=== PATIENT | female | born 1990 | race Caucasian/White ===

== ENCOUNTER 2022-07-07 16:03 | Inpatient (IN) | payer SELFPAY ==
[~2022-07-07] VITALS: Ht 160 cm; Wt 80.7 kg
--- NOTE | 2022-07-07 16:35 | NUR ---
C/O NAUSEA/ VOMITING DIARRHEA SINCE YESTERDAY. "VOMIT & DIARRHEA 10X" ABDOMINAL CRAMPING PAIN 02/08
--- NOTE | 2022-07-07 16:40 | NUR ---
pt seen by dr babb at bedside for eval
[2022-07-07] MEDS ORDERED: KETOROLAC TROMETHAMINE INJ 30 MG/ML VIAL IV ONE (17:00)
[2022-07-07] MEDS ORDERED: IV NS 0.9% 1,000 ML IV ONE ×2 (17:00→19:00)
[2022-07-07] MEDS ORDERED: ONDANSETRON HCL/PF 4 MG/2 ML VIAL IV ONE (17:00)
[2022-07-07] MEDS ORDERED: ONDANSETRON HCL/PF 4 MG/2 ML VIAL ONE ×2 (17:20→19:52)
--- NOTE | 2022-07-07 17:20 | NUR ---
established iv line 18g left upper arm
--- NOTE | 2022-07-07 17:30 | NUR ---
blood sample obtained sent to lab
[2022-07-07] MEDS ORDERED: MORPHINE SULFATE INJ 4 MG/ML DISP.SYRIN ONE (17:43)
[2022-07-07] MEDS ORDERED: diphenhydrAMINE HCL 50 MG/ML VIAL ONE (17:43)
[2022-07-07] MEDS ORDERED: METOCLOPRAMIDE HCL 10 MG/2 ML VIAL ONE (17:43)
[2022-07-07] MEDS ORDERED: diphenhydrAMINE HCL 50 MG/ML VIAL IV ONE (18:00)
[2022-07-07] MEDS ORDERED: METOCLOPRAMIDE HCL 10 MG/2 ML VIAL IV ONE (18:00)
[2022-07-07] MEDS ORDERED: MORPHINE SULFATE INJ 2 MG/ML DISP.SYRIN IV ONE (18:00)
[2022-07-07 18:07] LABS: BASOPHILS % (AUTO) 0.1 % (0.0-2.0); HEMATOCRIT 45 % (33-45); HEMOGLOBIN 14.2 g/dL (11.5-14.8); LYMPHOCYTES # (AUTO) 0.8 K/uL (0.8-4.8); MEAN CORPUSCULAR HGB CONC 32 g/dl (31.0-36.0); MEAN CORPUSCULAR VOLUME 84 fL (82-100); MONOCYTES # (AUTO) 0.9 K/uL (0.1-1.30); MONOCYTES % (AUTO) 8.8 % (2.0-12.0); NEUTROPHILS # (AUTO) 8.8 K/uL (1.8-8.9); NEUTROPHILS % (AUTO) 83.1 % (43.0-81.0); PLATELET COUNT (AUTO) 451 K/uL (150-450); RED BLOOD CELL COUNT(AUTO) 5.35 MIL/uL (4.0-5.2); WHITE BLOOD COUNT (AUTO) 10.6 K/uL (4.3-11.0)
[2022-07-07 18:34] LABS: CALCIUM, SERUM 10.3 mg/dL (8.5-10.1); CREATININE 1.1 mg/dL (0.6-1.3); POTASSIUM 3.2 mmol/L (3.5-5.1)
--- NOTE | 2022-07-07 19:26 | NUR ---
URINE SAMPLE COLLECTED AND SENT TO LAB
[2022-07-07] MEDS ORDERED: POTASSIUM CHLORIDE 20 MEQ TAB.PRT.SR PO ONE ×2 (19:30→19:35)
[2022-07-07 19:53] LABS: BILIRUBIN,URINE 2+ (NEGATIVE); COLOR,URINE YELLOW (YELLOW); LEUKOCYTE ESTERASE ,URINE 2+ (NEGATIVE); NITRITE, URINE NEGATIVE (NEGATIVE); PROTEIN,URINE 1+ mg/dl (NEGATIVE); UGLUCOSE NEGATIVE (NEGATIVE); UROBILINOGEN,URINE 0.2 EU/dL (0.2)
[2022-07-07] MEDS ORDERED: ONDANSETRON HCL/PF - ER 4 MG/2 ML VIAL IV ONE (20:00)
[2022-07-07 20:08] LABS: BACTERIA,URINE 2+ /HPF (None Seen); WBC,URINE 21-50 /HPF (0-3)
[2022-07-07 20:09] LABS: MUCUS,URINE Moderate /LPF (None Seen)
[2022-07-07] MEDS ORDERED: CEFTRIAXONE 1GM BAG (ER ONLY) 1 GM/50 ML PIGGYBACK IV ONE (20:30)
[2022-07-07] MEDS ORDERED: CEFTRIAXONE 1GM BAG (ER ONLY) 50 ML IV ONE (20:35)
[2022-07-07] MEDS ORDERED: HALOPERIDOL LACTATE INJ 5 MG/ML VIAL ONE (21:20)
[2022-07-07] MEDS ORDERED: HALOPERIDOL LACTATE INJ 5 MG/ML VIAL IV ONE (21:30)
--- NOTE | 2022-07-07 21:41 | NUR ---
COVID SWAB COLLECTED
--- NOTE | 2022-07-07 23:16 | NUR ---
REPORT GIVEN TO ALICIA ISABEL
[2022-07-08] VITALS: BP 130/90
[2022-07-08] MEDS ORDERED: MAGNESIUM HYDROXIDE 30 ML UDC PO PRN
[2022-07-08] MEDS ORDERED: Z GUARD REMEDY 4 OZ OINT TP PRN
[2022-07-08] MEDS ORDERED: HYDROCODONE/APAP 5/325MG TABLET PO PRN
[2022-07-08] MEDS ORDERED: ACETAMINOPHEN 325 MG TABLET PO PRN
[2022-07-08] MEDS ORDERED: MAG HYDROX/AL HYDROX/SIMETH 30 ML UDC PO PRN
[2022-07-08] MEDS ORDERED: ZOLPIDEM TARTRATE 5 MG TABLET PO PRN
--- NOTE | 2022-07-08 00:12 | NUR ---
PATIENT TRANSFERRED VSS.
[2022-07-08] MEDS: MORPHINE SULFATE INJ 2 MG/ML DISP.SYRIN IV PRN ×5 (00:23→22:22)
[2022-07-08] MEDS: IV NS 0.9% 1,000 ML IV PRN ×3 (00:23→22:22)
--- NOTE | 2022-07-08 00:31 | NUR ---
RN NOTE PRN MORPHINE 4MG GIVEN FOR 10/10 PAIN TOLERATED WELL.
--- NOTE | 2022-07-08 01:04 | NUR ---
RN NOTE PT A/OX4 ABLE TO MAKE NEEDS KNOWN ON ROOM AIR TOLERATING WELL. WITH IV ACCESS ON THE TEJINDER #18G FLUSHING WELL CONNECTED TO NS@100ML/HR. PT WAS REPORTING 10/10 ABDOMINAL PAIN PRN MORPHINE WAS GIVEN TOLERATED WELL PT NOT REPORTING N/V AT THIS TIME.PT ASLEEP AT THIS TIME. EASILY WOKEN UP. PT ORIENTED TO UNIT AND ROOM. CALL LIGHT WITHIN REACH. TABLE WITHIN REACH. ALL NEEDS MET AT THIS TIME.
[2022-07-08] MEDS: ONDANSETRON HCL/PF 4 MG/2 ML VIAL IVP PRN ×4 (04:55→23:59)
--- NOTE | 2022-07-08 04:59 | NUR ---
RN NOTE PRN MORPHINE AND ZOFRAN GIVEN FOR NAUSEA AND PAIN MANAGEMENT TOLERATED WELL.
[2022-07-08 05:53] LABS: BASOPHILS % (AUTO) 0.3 % (0.0-2.0); EOSINOPHILS % (AUTO) 0.2 % (0.0-6.0); HEMATOCRIT 37 % (33-45); HEMOGLOBIN 11.8 g/dL (11.5-14.8); LYMPHOCYTES # (AUTO) 1.2 K/uL (0.8-4.8); LYMPHOCYTES % (AUTO) 12.9 % (20.0-44.0); MEAN CORPUSCULAR HGB CONC 32 g/dl (31.0-36.0); MEAN CORPUSCULAR VOLUME 84 fL (82-100); MONOCYTES # (AUTO) 0.9 K/uL (0.1-1.30); MONOCYTES % (AUTO) 9.4 % (2.0-12.0); NEUTROPHILS # (AUTO) 7.2 K/uL (1.8-8.9); NEUTROPHILS % (AUTO) 77.2 % (43.0-81.0); PLATELET COUNT (AUTO) 283 K/uL (150-450); RED BLOOD CELL COUNT(AUTO) 4.34 MIL/uL (4.0-5.2); WHITE BLOOD COUNT (AUTO) 9.3 K/uL (4.3-11.0)
[2022-07-08 06:12] LABS: CALCIUM, SERUM 8.2 mg/dL (8.5-10.1); CREATININE 0.8 mg/dL (0.6-1.3); MAGNESIUM 1.9 mg/dL (1.8-2.4); PHOSPHORUS 3.5 mg/dL (2.5-4.9); POTASSIUM 3.5 mmol/L (3.5-5.1)
--- NOTE | 2022-07-08 06:56 | NUR ---
RN NOTE PT IN BED ASLEEP EASILY WOKEN UP. ALL NEEDS MET. CALL LIGHT WITHIN REACH. PAIN MANAGEMENT PROVIDED NEEDED. NO EMESIS DURING THE SHIFT.WILL ENDORSE CARE TO DAY SHIFT NURSE.
--- NOTE | 2022-07-08 07:30 | NUR ---
RN MS NOTES PT IN BED, AWAKE, ALERT AND ORIENTED, WITH COMPLAINT OF ABDOMINAL, CALL LIGHT WITHIN REACH, IV FLUIDS INFUSING WELL, NEEDS ATTENDED.
[2022-07-08 08:00] VITALS: BP 116/68
[2022-07-08] MEDS: PANTOPRAZOLE 40 MG TABLET.DR PO SCH (08:02)
[2022-07-08] MEDS ORDERED: [UNRECOGNIZED DRUG - CODE] PO (08:24)
[2022-07-08] MEDS ORDERED: CLON1TAB12 PO (08:24)
[2022-07-08] MEDS ORDERED: NADO20TA3 PO (08:24)
[2022-07-08] MEDS ORDERED: ONDA4TAB11 PO (08:24)
[2022-07-08] MEDS ORDERED: IVAB7.5T PO (08:24)
[2022-07-08] MEDS ORDERED: FAMO20TA8 PO (08:24)
[2022-07-08] MEDS ORDERED: DULO20CA19 PO (08:24)
[2022-07-08] MEDS ORDERED: PANT40TA49 PO (08:24)
[2022-07-08] MEDS ORDERED: CEFTRIAXONE 1 G in IV D5W 50 ML IV SCH (09:00)
[2022-07-08 16:00] VITALS: BP 116/79
[2022-07-08] MEDS: METRONIDAZOLE 500MG/ NS 100ML 500 MG in PREMIX 1 EA IV SCH ×2 (17:28→23:56)
--- NOTE | 2022-07-08 18:33 | NUR ---
RN MS NOTES PT IN BED, AWAKE, ALERT AND ORIENTED, PAIN MEDICATION AND NAUSEA MEDS GIVEN ORDERED, IV FLUIDS INFUSING WELL, ABLE TO AMBULATE TO THE BATHROOM WITH STEADY GAIT, SEEN BY DR. ESTEVES TODAY, CALL LIGHT WITHIN REACH, DUE MEDS GIVEN ORDERED.
--- NOTE | 2022-07-08 19:30 | NUR ---
MS RN OPENING NOTES - RECEIVED PATIENT AWAKE, BED IN LOW SEMI-LOMBARDO'S. A/O X4. BREATHING EVEN AND NON-LABORED ON ROOM AIR. C/O MILD MID-ABDOMINAL PAIN WITH NAUSEA. HAS LEFT UPPER ARM IV ACCESS #18G WITH NS RUNNING AT 100 ML/HR. NO S/S OF INFILTRATION NOTED. SAFETY PRECAUTIONS IN PLACE: BED LOCKED AND IN LOW POSITION, SIDE RAILS UP X2, CALL LIGHT WITHIN REACH. WILL CONTINUE PLAN OF CARE.
[2022-07-08 20:00] VITALS: BP 141/68
[2022-07-08] MEDS: CEFTRIAXONE 1 G in IV D5W 50 ML IV SCH (20:27)
[2022-07-08] MEDS: LORAZEPAM INJ 2 MG/ML VIAL IV PRN (20:31)
--- NOTE | 2022-07-08 20:41 | NUR ---
PER ON-CALL HOSPITALIST CHELSEY REN NP, HOSPITALIST WINSTON ESTEVES NP CAN DO THE MED RECON TOMORROW. CN SOFI AWARE.
[2022-07-09] MEDS: MORPHINE SULFATE INJ 2 MG/ML DISP.SYRIN IV PRN ×5 (02:22→22:46)
--- NOTE | 2022-07-09 04:59 | NUR ---
N/V MANAGED BY GIVING PRN MORPHINE SULFATE 4MG AND ZOFRAN 4MG PER MD ORDER. CLEAR EMESIS NOTED.
[2022-07-09] MEDS: ONDANSETRON HCL/PF 4 MG/2 ML VIAL IVP PRN ×3 (06:16→17:52)
[2022-07-09] MEDS: METRONIDAZOLE 500MG/ NS 100ML 500 MG in PREMIX 1 EA IV SCH ×4 (06:17→23:59)
--- NOTE | 2022-07-09 07:30 | NUR ---
MS RN OPENING NOTES - RECEIVED PATIENT AWAKE AND VERBALLY RESPONSIVE , BED IN LOW SEMI-LOMBARDO'S. A/O X4. ROOM AIR WITH NO SOB OR DISTRESS NOTED . NO C/O OF PAIN AND DISCOMFORT , NAUSEA NOTED , HAS LEFT UPPER ARM IV ACCESS #18G WITH NS RUNNING AT 100 ML/HR. NO S/S OF INFILTRATION NOTED. SAFETY PRECAUTIONS IN PLACE: BED LOCKED AND IN LOW POSITION, SIDE RAILS UP X2, CALL LIGHT WITHIN REACH. WILL CONTINUE PLAN OF CARE.
--- NOTE | 2022-07-09 07:30 | NUR ---
MS RN CLOSING NOTES - PATIENT IN BED ASLEEP, EASY TO AROUSE. ABLE TO VERBALIZE NEEDS. AMBULATORY WITH STEADY GAIT. NO ACUTE EVENTS THROUGHOUT THE NIGHT. AFEBRILE. N/V AND ABDOMINAL PAIN STILL PRESENT, ON CLEAR LIQUIDS. LEFT UPPER ARM IV ACCESS #18G INTACT, PATENT AND FLUSHING. ALL DUE MEDS GIVEN AND NEEDS ATTENDED. SAFETY PRECAUTIONS MAINTAINED. WILL ENDORSE TO NEXT SHIFT FOR CONTINUITY OF CARE.
[2022-07-09] MEDS: PANTOPRAZOLE 40 MG TABLET.DR PO SCH (07:56)
[2022-07-09] MEDS: CEFTRIAXONE 1 G in IV D5W 50 ML IV SCH (09:01)
[2022-07-09 09:45] LABS: BASOPHILS % (AUTO) 0.3 % (0.0-2.0); EOSINOPHILS % (AUTO) 0.2 % (0.0-6.0); HEMATOCRIT 41 % (33-45); HEMOGLOBIN 12.9 g/dL (11.5-14.8); LYMPHOCYTES # (AUTO) 0.9 K/uL (0.8-4.8); LYMPHOCYTES % (AUTO) 15.5 % (20.0-44.0); MEAN CORPUSCULAR HGB CONC 32 g/dl (31.0-36.0); MEAN CORPUSCULAR VOLUME 83 fL (82-100); MONOCYTES # (AUTO) 0.3 K/uL (0.1-1.30); MONOCYTES % (AUTO) 5.8 % (2.0-12.0); NEUTROPHILS # (AUTO) 4.3 K/uL (1.8-8.9); NEUTROPHILS % (AUTO) 78.2 % (43.0-81.0); PLATELET COUNT (AUTO) 262 K/uL (150-450); RED BLOOD CELL COUNT(AUTO) 4.88 MIL/uL (4.0-5.2); WHITE BLOOD COUNT (AUTO) 5.5 K/uL (4.3-11.0)
[2022-07-09 09:59] LABS: CALCIUM, SERUM 8.8 mg/dL (8.5-10.1); CREATININE 0.8 mg/dL (0.6-1.3); POTASSIUM 3.3 mmol/L (3.5-5.1)
[2022-07-09 10:13] LABS: ALBUMIN 3.8 g/dL (3.4-5.0); BILIRUBIN,DIRECT 0.2 mg/dL (0.0-0.2); BILIRUBIN,TOTAL 0.7 mg/dL (0.2-1.0); MAGNESIUM 1.9 mg/dL (1.8-2.4); PHOSPHORUS 2.8 mg/dL (2.5-4.9); TOTAL PROTEIN, SERUM 6.8 g/dL (6.4-8.2)
--- NOTE | 2022-07-09 10:15 | NUR ---
RN NOTES PATIENT C/O OF NAUSEA AND VOMITTING AND WITH ORDER OF ZOFRAN Q 6 HOURS , PULP MAKING PLANT OPERATOR SHAR ESTEVES AWARE AND WITH ORDER TO GIVE ZOFRAN IV , GIVEN AT 1011
--- NOTE | 2022-07-09 10:54 | NUR ---
RN NOTES ASSESSED FOR NAUSEA AND VOMITTING AND SHE SAID VETO IS NOT HELPING AT ALL , ENGRAVING PLATE MAKER SHAR ESTEVES WITH ORDER OF COMPAZINE IV AND GIVEN ORDERED
[2022-07-09] MEDS: IV NS 0.9% 1,000 ML IV PRN ×2 (11:07→23:59)
[2022-07-09] MEDS: LORAZEPAM INJ 2 MG/ML VIAL IV PRN (11:20)
--- NOTE | 2022-07-09 13:55 | NUR ---
NOTES: PT REQUESTED COMPAZINE, STATES SHE IS FEELING NAUSEATED, COVERING MAIN RN; WILL ADMINISTER ORDERED.
[2022-07-09] MEDS: PROCHLORPERAZINE EDISYLATE 10 MG/2 ML VIAL IM PRN ×2 (14:05→20:29)
[2022-07-09] MEDS ORDERED: IVABRADINE HCL 7.5 MG PO SCH (17:00)
[2022-07-09] MEDS: clonazePAM 1 MG TABLET PO SCH (17:14)
[2022-07-09] MEDS ORDERED: POTASSIUM CL. PREMIX PERIPHER. 50 ML IV SCH (18:30)
--- NOTE | 2022-07-09 18:36 | NUR ---
MS RN CLOSING NOTES - PATIENT AWAKE AND VERBALLY RESPONSIVE , BED IN LOW SEMI-LOMBARDO'S. A/O X4. ROOM AIR WITH NO SOB OR DISTRESS NOTED . C/O OF PAIN AND DISCOMFORT AND MORPHINE IV GIVEN ORDERED AND WITH HELP , NAUSEA AND VOMITTING NOTED ZOFRAN GIVEN AND SEEN BY INTERNET SALES ASSOCIATE WINSTON ESTEVES AND WITH ORDER OF COMPAZINE IM ORDERED GIVEN X 1 , MEDS WERE RECONCILED AND ORDERED , NOTED WITH K LEVEL OF 3.3 AND POTASSIUM IV GIVEN ORDERED , ALL DUE MEDS ORDERED GIVEN , HAS LEFT UPPER ARM IV ACCESS #18G WITH NS RUNNING AT 100 ML/HR. NO S/S OF INFILTRATION NOTED. SAFETY PRECAUTIONS IN PLACE: BED LOCKED AND IN LOW POSITION, SIDE RAILS UP X2, CALL LIGHT WITHIN REACH. WILL ENDORSED TO NEXT SHIFT .
--- NOTE | 2022-07-09 20:08 | NUR ---
RN OPENING NOTES RECEIVED PT IN BED, EYES CLOSED, LAYING ON LEFT SIDE. AOx4, ABLE TO MAKE NEEDS KNOWN. ON RA AND TOLERATING WELL. NO SOB NOTED. NO S/SX OF RESPIRATORY DISTRESS NOTED. IV ACCESS IN TEJINDER #18G RUNNING NS @ 100 ML/HR. SAFETY PRECAUTIONS IN PLACE: BED IN LOWEST, LOCKED POSITION, SIDERAILS UPx2, AND BRAKES ON. TABLE AND CALL LIGHT WITHIN REACH. ALL NEEDS MET AT THIS TIME.
[2022-07-09 20:35] VITALS: BP 137/94
[2022-07-09] MEDS: METOPROLOL TARTRATE 25 MG TABLET PO SCH (20:41)
[2022-07-09] MEDS: METOCLOPRAMIDE HCL 10 MG/2 ML VIAL IV SCH (22:35)
--- NOTE | 2022-07-09 22:46 | NUR ---
RN NOTES ADMINISTERED MORPHINE FOR PAIN PER MD ORDER.VS WNL.
[2022-07-10] MEDS: MORPHINE SULFATE INJ 2 MG/ML DISP.SYRIN IV PRN ×2 (02:42→08:30)
[2022-07-10] MEDS: ONDANSETRON HCL/PF 4 MG/2 ML VIAL IVP PRN ×2 (02:42→08:46)
--- NOTE | 2022-07-10 02:43 | NUR ---
RN NOTES ADMINISTERED ZOFRAN FOR NAUSEA AND VOMITING. ADMINISTERED MORPHINE FOR PAIN PER MD ORDER. VS WNL.
[2022-07-10] MEDS: METOCLOPRAMIDE HCL 10 MG/2 ML VIAL IV SCH ×2 (04:19→10:46)
[2022-07-10] MEDS: METRONIDAZOLE 500MG/ NS 100ML 500 MG in PREMIX 1 EA IV SCH (05:45)
[2022-07-10 06:14] LABS: BASOPHILS % (AUTO) 0.3 % (0.0-2.0); EOSINOPHILS % (AUTO) 0.8 % (0.0-6.0); HEMATOCRIT 40 % (33-45); HEMOGLOBIN 12.6 g/dL (11.5-14.8); LYMPHOCYTES # (AUTO) 1.2 K/uL (0.8-4.8); LYMPHOCYTES % (AUTO) 20.8 % (20.0-44.0); MEAN CORPUSCULAR HGB CONC 32 g/dl (31.0-36.0); MEAN CORPUSCULAR VOLUME 84 fL (82-100); MONOCYTES # (AUTO) 0.6 K/uL (0.1-1.30); MONOCYTES % (AUTO) 11.2 % (2.0-12.0); NEUTROPHILS # (AUTO) 3.8 K/uL (1.8-8.9); NEUTROPHILS % (AUTO) 66.9 % (43.0-81.0); PLATELET COUNT (AUTO) 250 K/uL (150-450); RED BLOOD CELL COUNT(AUTO) 4.73 MIL/uL (4.0-5.2); WHITE BLOOD COUNT (AUTO) 5.6 K/uL (4.3-11.0)
[2022-07-10 06:24] LABS: CALCIUM, SERUM 8.3 mg/dL (8.5-10.1); CREATININE 0.9 mg/dL (0.6-1.3); PHOSPHORUS 3.8 mg/dL (2.5-4.9); POTASSIUM 2.9 mmol/L (3.5-5.1)
--- NOTE | 2022-07-10 07:32 | NUR ---
RN CLOSING NOTES PT IN BED, ASLEEP, AWAKENS TO VERBAL STIMULI. AOx4, ABLE TO MAKE NEEDS KNOWN. ON RA AND TOLERATING WELL. NO SOB NOTED. NO S/SX OF RESPIRATORY DISTRESS NOTED. IV ACCESS IN TEJINDER #18G RUNNING NS @ 100 ML/HR. ALL ORDERS CARRIED OUT. ALL NEEDS MET. PT KEPT CLEAN AND DRY. TREATED PAIN THROUGHOUT SHIFT. SAFETY PRECAUTIONS IN PLACE: BED IN LOWEST, LOCKED POSITION, SIDERAILS UPx2, AND BRAKES ON. TABLE AND CALL LIGHT WITHIN REACH. WILL ENDORSE TO ONCOMING SHIFT FOR ROSE.
--- NOTE | 2022-07-10 07:35 | NUR ---
RN OPENING NOTE RECEIVED PATIENT IN BED, ASLEEP, EASILY AROUSED. NO SIGNS OF ACUTE DISTRESS NOTED. STABLE ON ROOM AIR, BREATHING EVEN AND UNLABORED. NO S/SX OF PAIN AT THIS TIME. NOTED WITH IV ACCESS ON LEFT UPPER ARM #18G, INTACT AND PATENT, WITH NS @100ML/HR RUNNING. SAFETY MEASURE IN PLACE. BED IN LOWEST AND LOCKED POSITION, SIDE RAILS UP X2, CALL LIGHT PLACED WITHIN EASY REACH. WILL CONTINUE TO MONITOR PATIENT.
[2022-07-10 08:00] VITALS: BP 132/77
[2022-07-10] MEDS: PANTOPRAZOLE 40 MG TABLET.DR PO SCH (08:37)
[2022-07-10 08:38] VITALS: BP 132/77
[2022-07-10] MEDS: METOPROLOL TARTRATE 25 MG TABLET PO SCH (08:38)
[2022-07-10] MEDS: clonazePAM 1 MG TABLET PO SCH (08:38)
[2022-07-10] MEDS: CEFTRIAXONE 1 G in IV D5W 50 ML IV SCH (08:42)
[2022-07-10] MEDS: POTASSIUM CL. PREMIX PERIPHER. 50 ML IV SCH ×2 (08:57→10:47)
[2022-07-10] MEDS ORDERED: DULOXETINE HCL 20 MG CAPSULE.DR PO SCH (09:00)
[2022-07-10] MEDS ORDERED: DICY10CA37 PO (11:34)
[2022-07-10] MEDS ORDERED: METO-295 PO (11:34)
[2022-07-10] MEDS ORDERED: CEPH500C2 PO (11:36)
[2022-07-10] MEDS ORDERED: POTASSIUM CHLORIDE 20 MEQ TAB.PRT.SR PO ONE (12:00)
[2022-07-10] MEDS ORDERED: METRONIDAZOLE 250 MG TABLET PO SCH (12:00)
[2022-07-10] MEDS ORDERED: DICYCLOMINE HCL INJ 20 MG/2 ML AMPUL IM SCH (12:00)
[2022-07-10] MEDS ORDERED: POTA10CA43 PO (13:10)
--- NOTE | 2022-07-10 13:10 | NUR ---
EYEGLASS MAKER NOTE DISCHARGED THIS 31 Y/O FEMALE PATIENT TO HOME IN STABLE CONDITION. PATIENT REMAINS AWAKE, ALERT AND ORIENTED X4, VERBALLY RESPONSIVE. NO SIGNS OF ACUTE DISTRESS NOTED. EXITCARE FOLDER AND DISCHARGE INSTRUCTIONS PROVIDED TO PATIENT WITH VERBALIZATION OF UNDERSTANDING. ALL BELONGINGS ACCOUNTED FOR, FORM SIGNED BY PATIENT. ARM NAME BAND REMOVED. PATIENT LEFT UNIT @1300 AMBULATORY, PATIENT PICKED UP BY MOTHER ALYSSA VIA PRIVATE CAR. CN AWARE OF DISCHARGE.
[2022-07-12 19:06] LABS: H. PYLORI AB IgA <9.0 units (0.0-8.9)
== END 2022-07-10 13:00 | disposition home or self-care (01) | DRG 392 ==
LOC: ER 16:13 → MED 22:54
PROVIDERS: ADMIT Nurse Practitioner Acute Care; ATTEND Nurse Practitioner Acute Care
DX: A09 Infectious gastroenteritis and colitis, unspecified (principal); N39.0 Urinary tract infection, site not specified; E86.0 Dehydration; K20.90 Esophagitis, unspecified without bleeding; Z20.822 Contact with and (suspected) exposure to COVID-19; K29.70 Gastritis, unspecified, without bleeding; N20.0 Calculus of kidney; Z90.5 Acquired absence of kidney; Z87.442 Personal history of urinary calculi; Z85.528 Personal history of other malignant neoplasm of kidney; Z88.8 Allergy status to other drugs, medicaments and biological substances; Z88.1 Allergy status to other antibiotic agents; Z91.040 Latex allergy status; Z87.19 Personal history of other diseases of the digestive system; E87.6 Hypokalemia; E66.9 Obesity, unspecified; Z68.31 Body mass index [BMI] 31.0-31.9, adult
CPT/HCPCS: 36415; 80048-TC; 80076-TC; 81001; 83735-TC; 84100-TC; 84703-TC; 85025-TC; 86677; 87081-TC; 87086-TC; A4216; C9803; G0378; J0500; J0696; J0780; J1200; J1630; J2060; J2270; J2405; J2765; J3480; J7030; J7060

== ENCOUNTER 2022-07-12 09:00 | Inpatient (IN) | payer SELFPAY ==
[~2022-07-12] VITALS: Ht 157.5 cm; Wt 80.7 kg
[~2022-07-12 09:00] MED LIST: CEPH500C2 PO; CLON1TAB12 PO; DICY10CA37 PO; DULO20CA19 PO; FAMO20TA8 PO; IVAB7.5T PO; METO-295 PO; NADO20TA3 PO; ONDA4TAB11 PO; PANT40TA49 PO; POTA10CA43 PO; [UNRECOGNIZED DRUG - CODE] PO
--- NOTE | 2022-07-12 09:04 | NUR ---
DR SCHAEFER AT BEDSIDE
--- NOTE | 2022-07-12 09:10 | NUR ---
BIB Self C/O abdominal pain, nausea and vomiting and diarrhea since sunday pt on room air sat 97% no respiratory distress noted
[2022-07-12] MEDS ORDERED: ONDANSETRON HCL/PF 4 MG/2 ML VIAL ONE (09:13)
--- NOTE | 2022-07-12 09:20 | NUR ---
PHLEB AT BEDSIDE FOR BLOOD DRAW
--- NOTE | 2022-07-12 09:22 | NUR ---
22g started in RW blood drawn
[2022-07-12] MEDS ORDERED: IV NS 0.9% 1,000 ML BAG IV ONE (09:30)
[2022-07-12] MEDS ORDERED: ONDANSETRON HCL/PF 4 MG/2 ML VIAL IVP ONE (09:30)
[2022-07-12 09:37] LABS: BASOPHILS % (AUTO) 0.4 % (0.0-2.0); EOSINOPHILS % (AUTO) 0.5 % (0.0-6.0); HEMATOCRIT 45 % (33-45); HEMOGLOBIN 14.3 g/dL (11.5-14.8); LYMPHOCYTES # (AUTO) 1.7 K/uL (0.8-4.8); MEAN CORPUSCULAR HGB CONC 32 g/dl (31.0-36.0); MEAN CORPUSCULAR VOLUME 85 fL (82-100); MONOCYTES % (AUTO) 10.4 % (2.0-12.0); NEUTROPHILS # (AUTO) 6.6 K/uL (1.8-8.9); NEUTROPHILS % (AUTO) 70.7 % (43.0-81.0); PLATELET COUNT (AUTO) 316 K/uL (150-450); RED BLOOD CELL COUNT(AUTO) 5.33 MIL/uL (4.0-5.2); WHITE BLOOD COUNT (AUTO) 9.4 K/uL (4.3-11.0)
[2022-07-12 09:47] LABS: BILIRUBIN,URINE NEGATIVE (NEGATIVE); COLOR,URINE YELLOW (YELLOW); LEUKOCYTE ESTERASE ,URINE NEGATIVE (NEGATIVE); NITRITE, URINE NEGATIVE (NEGATIVE); PH,URINE 6.5 (5.0-8.0); PROTEIN,URINE NEGATIVE (NEGATIVE); UGLUCOSE NEGATIVE (NEGATIVE); UROBILINOGEN,URINE 0.2 EU/dL (0.2)
[2022-07-12 09:56] LABS: BACTERIA,URINE Rare /HPF (None Seen); RBC,URINE 0-2 /HPF (0-2); SQUAMOUS EPITHELIAL CELL,UR Few /HPF (None Seen); WBC,URINE 0-2 /HPF (0-3)
[2022-07-12] MEDS ORDERED: FAMOTIDINE/PF INJ 20 MG/2 ML VIAL IV ONE ×2 (10:30→10:31)
[2022-07-12] MEDS ORDERED: LIDOCAINE VISCOUS 2% UD 15 ML UDC MM ONE (10:30)
[2022-07-12] MEDS ORDERED: MAG HYDROX/AL HYDROX/SIMETH 30 ML UDC PO ONE (10:30)
[2022-07-12] MEDS ORDERED: DICYCLOMINE HCL INJ 20 MG/2 ML AMPUL IM ONE ×2 (10:30)
[2022-07-12] MEDS ORDERED: MORPHINE SULFATE INJ 2 MG/ML DISP.SYRIN IV ONE (10:30)
[2022-07-12] MEDS ORDERED: LIDOCAINE VISCOUS 2% UD 15 ML UDC ONE (10:30)
[2022-07-12] MEDS ORDERED: MAG HYDROX/AL HYDROX/SIMETH 30 ML UDC ONE (10:30)
[2022-07-12] MEDS ORDERED: MORPHINE SULFATE INJ 2 MG/ML DISP.SYRIN ONE (10:31)
[2022-07-12 11:02] LABS: BILIRUBIN,DIRECT 0.2 mg/dL (0.0-0.2); BILIRUBIN,TOTAL 0.8 mg/dL (0.2-1.0); CALCIUM, SERUM 8.9 mg/dL (8.5-10.1); TOTAL PROTEIN, SERUM 6.9 g/dL (6.4-8.2)
[2022-07-12 11:18] LABS: POTASSIUM 2.6 mmol/L (3.5-5.1)
--- NOTE | 2022-07-12 11:29 | NUR ---
covid swab collected and sent to lab
[2022-07-12] MEDS ORDERED: HALOPERIDOL LACTATE INJ 5 MG/ML VIAL IV ONE (11:30)
[2022-07-12] MEDS ORDERED: IV NS 0.9% 1,000 ML IV ONE (11:30)
[2022-07-12] MEDS ORDERED: diphenhydrAMINE HCL 50 MG/ML VIAL IV ONE (11:30)
[2022-07-12] MEDS ORDERED: METOCLOPRAMIDE HCL 10 MG/2 ML VIAL IV ONE (11:30)
[2022-07-12] MEDS ORDERED: METOCLOPRAMIDE HCL 10 MG/2 ML VIAL ONE (11:32)
[2022-07-12] MEDS ORDERED: HALOPERIDOL LACTATE INJ 5 MG/ML VIAL ONE (11:32)
[2022-07-12] MEDS ORDERED: diphenhydrAMINE HCL 50 MG/ML VIAL ONE (11:32)
[2022-07-12] MEDS ORDERED: POTASSIUM CL. PREMIX PERIPHER. 0 ML ONE (12:27)
[2022-07-12] MEDS: POTASSIUM CL. PREMIX PERIPHER. 50 ML IV SCH ×6 (12:30→23:05)
[2022-07-12] MEDS ORDERED: POTASSIUM CL. PREMIX PERIPHER. 200 ML ONE (12:33)
[2022-07-12] MEDS ORDERED: ONDANSETRON HCL/PF 4 MG/2 ML VIAL IVP PRN (13:30)
[2022-07-12] MEDS ORDERED: MAG HYDROX/AL HYDROX/SIMETH 30 ML UDC PO PRN (13:30)
[2022-07-12] MEDS ORDERED: Z GUARD REMEDY 4 OZ OINT TP PRN (13:30)
[2022-07-12] MEDS ORDERED: MAGNESIUM HYDROXIDE 30 ML UDC PO PRN (13:30)
[2022-07-12] MEDS ORDERED: ACETAMINOPHEN 325 MG TABLET PO PRN (13:30)
[2022-07-12] MEDS ORDERED: ONDANSETRON 4 MG TAB.RAPDIS PO PRN (14:00)
[2022-07-12] MEDS ORDERED: DICYCLOMINE HCL 10 MG CAPSULE PO PRN (14:00)
--- NOTE | 2022-07-12 14:02 | NUR ---
room 307-1
[2022-07-12] MEDS ORDERED: DIATR MEGLU/DIATRIZOATE SODIUM 120 ML BOTTLE (GASTROGRAPHIN) ONE (14:09)
--- NOTE | 2022-07-12 14:11 | NUR ---
report given to Madyson VARGAS to continue care.
--- NOTE | 2022-07-12 14:47 | NUR ---
PT TAKEN TO RADIOLOGY FOR SMALL BOWEL SERIES
--- NOTE | 2022-07-12 14:56 | NUR ---
patient will go to room 307-1 after the small bowel series.
--- NOTE | 2022-07-12 16:20 | NUR ---
SOCIAL MEDIA COMMUNITY MANAGER NOTE ADMITTED THIS 31 Y/O FEMALE PATIENT FROM [facility] @1620, PATIENT JUST FINISHED SBFT FROM RADIOLOGY, TRANSPORTED VIA W/C, ACCOMPANIED BY RAD STAFF. WITH ADMITTING DIAGNOSIS OF INTRACTABLE NAUSEA AND VOMITING. PATIENT IS AWAKE, A/O X4, VERBALLY RESPONSIVE. NO SIGNS OF ACUTE RESPIRATORY DISTRESS NOTED. STABLE ON ROOM AIR. ABLE TO AMBULATE WITH STEADY GAIT. NOTED WITH IV ACCESS ON LEFT FORE ARM #22G, INTACT AND PATENT, FLUSHES WELL. PATIENT STILL WITH C/O NAUSEA. BODY ASSESSMENT DONE, SKIN GENERALLY INTACT. ORIENTED PATIENT TO STAFF AND ROOM, SAFETY MEASURE IN PLACE. BED IN LOW AND LOCKED POSITION, SIDE RAILS UP X2, CALL LIGHT AND TABLE PLACED WITHIN EASY REACH. WILL CONTINUE TO MONITOR PATIENT.
[2022-07-12] MEDS: MORPHINE SULFATE INJ 2 MG/ML DISP.SYRIN IV PRN ×2 (16:22→22:31)
[2022-07-12] MEDS ORDERED: IVABRADINE HCL 7.5 MG PO SCH (17:00)
--- NOTE | 2022-07-12 17:00 | NUR ---
RN NOTE PATIENT REFUSES TO START IV POTASSIUM, PT SAID SHE COULDN'T TAKE THE BURNING SENSATION, IT'S VERY PAINFUL. 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 PATIENT WANTS TO WAIT FOR THE MIDLINE NURSE TO INSERT A NEW IV ACCESS. CARMENCITA MYLES MADE AWARE. RN VEHICLE CONTROLS ENGINEER ALSO MADE AWARE, WILL INFORM US OF MIDLINERS ETA.
[2022-07-12] MEDS: METOCLOPRAMIDE HCL 10 MG/2 ML VIAL IV SCH (17:34)
[2022-07-12] MEDS: FAMOTIDINE (20 MG) 20 MG TABLET PO SCH (17:34)
[2022-07-12] MEDS: clonazePAM 1 MG TABLET PO SCH (17:50)
[2022-07-12] MEDS: Potassium Chloride 20 MEQ in IV D5/0.45 NACL 1,000 ML IV SCH (18:00)
--- NOTE | 2022-07-12 18:50 | NUR ---
RN CLOSING NOTE PATIENT RESTING IN BED. NO S/SX OF ACUTE DISTRESS. REMAINS STABLE ON ROOM AIR, BREATHING EVEN AND UNLABORED. STILL WITH C/O ABDOMINAL PAIN AND NAUSEA. MEDICATED ORDERED. STILL WAITING FOR MIDLINE IV INSERTION. SAFETY MEASURE IN PLACE, BED IN LOWEST AND LOCKED POSITION, SIDE RAILS UP X2, CALL LIGHT PLACED WITHIN EASY REACH. WILL ENDORSE TO NEXT SHIFT FOR CONTINUITY OF CARE.
--- NOTE | 2022-07-12 19:30 | NUR ---
MS RN OPENING NOTE RECEIVED PATIENT AWAKE IN BED. PATIENT IS A/O TIMES 4. NO PAIN NOTED. REMAINS STABLE ON ROOM AIR, BREATHING EVEN AND UNLABORED. WAITING FOR MIDLINE IV INSERTION FOR POTASSIUM REPLACEMENT. ALL SAFETY MEASURE IN PLACE, BED IN LOWEST AND LOCKED POSITION, SIDE RAILS UP X2, CALL LIGHT AND TABLE IN EASY REACH. WILL CONTINUE WITH PLAN OF CARE.
[2022-07-12] MEDS: METOPROLOL TARTRATE 25 MG TABLET PO SCH (21:21)
[2022-07-12] MEDS: ZOLPIDEM TARTRATE 10 MG TABLET PO SCH (21:29)
--- NOTE | 2022-07-12 22:00 | NUR ---
RN NOTES PATIENT HAD ROUTINE AMBIEN ORDER FOR 2200. GOT THE PILL FROM [facility] [employer] . THE LABEL WAS NOT SCANNING. TRIES SO MANY TIMES AND I USED MANUAL BARCODE METHOD TO SCAN THE MEDICATION.
--- NOTE | 2022-07-12 22:46 | NUR ---
RN NOTES IV POTASSIUM AND POTASSIUM CHLORIDE WAS NOT ADMINISTERED AT 1400 AND 1500 AND 1800 SINCE PATIENT REFUSED THROUGH PERIPHERAL LINE AND REQUESTED FOR MIDLINE.AWAITING FOR MIDLINE INSERTION.
[2022-07-13] MEDS: Potassium Chloride 20 MEQ in IV D5/0.45 NACL 1,000 ML IV SCH ×2 (01:05→15:52)
[2022-07-13] MEDS: MORPHINE SULFATE INJ 2 MG/ML DISP.SYRIN IV PRN ×4 (02:37→18:33)
[2022-07-13 05:56] LABS: BASOPHILS % (AUTO) 0.6 % (0.0-2.0); CALCIUM, SERUM 8.7 mg/dL (8.5-10.1); CREATININE 0.9 mg/dL (0.6-1.3); EOSINOPHILS % (AUTO) 2.1 % (0.0-6.0); HEMATOCRIT 38 % (33-45); HEMOGLOBIN 12.5 g/dL (11.5-14.8); LYMPHOCYTES # (AUTO) 2.2 K/uL (0.8-4.8); LYMPHOCYTES % (AUTO) 31.7 % (20.0-44.0); MAGNESIUM 2.2 mg/dL (1.8-2.4); MEAN CORPUSCULAR HGB CONC 32 g/dl (31.0-36.0); MEAN CORPUSCULAR VOLUME 84 fL (82-100); MONOCYTES # (AUTO) 0.7 K/uL (0.1-1.30); MONOCYTES % (AUTO) 10.1 % (2.0-12.0); NEUTROPHILS # (AUTO) 3.8 K/uL (1.8-8.9); NEUTROPHILS % (AUTO) 55.5 % (43.0-81.0); PHOSPHORUS 4.1 mg/dL (2.5-4.9); PLATELET COUNT (AUTO) 277 K/uL (150-450); POTASSIUM 3.2 mmol/L (3.5-5.1); RED BLOOD CELL COUNT(AUTO) 4.57 MIL/uL (4.0-5.2); WHITE BLOOD COUNT (AUTO) 6.8 K/uL (4.3-11.0)
--- NOTE | 2022-07-13 06:36 | NUR ---
MS RN CLOSING NOTE PATIENT AWAKE IN BED. PATIENT IS A/O TIMES 4. NO PAIN NOTED. REMAINS STABLE ON ROOM AIR, BREATHING EVEN AND UNLABORED. IV ACCESS ON RIGHT UPPER ARM MID LINE INTACT AND PATENT RUNNING POTASSIUM CHLORIDE 20 MEQ AT 100 ML/HR. ALL DUE MEDS GIVEN ORDERED.ALL SAFETY MEASURE IN PLACE, BED IN LOWEST AND LOCKED POSITION, SIDE RAILS UP X2, CALL LIGHT AND TABLE IN EASY REACH. WILL CONTINUE WITH PLAN OF CARE.
[2022-07-13 07:08] LABS: THYROID STIMULATING HORMONE 0.517 uIU/mL (0.358-3.74)
--- NOTE | 2022-07-13 07:10 | NUR ---
ms rn received on bed, awake,alert,oriented x4,complaining of abdominal pain,with nausea,no sob noted, abdomen soft,positive bowel sounds,will monitor patient.
[2022-07-13] MEDS: PANTOPRAZOLE 40 MG TABLET.DR PO SCH (07:30)
[2022-07-13 08:27] VITALS: BP 126/89
--- NOTE | 2022-07-13 08:30 | NUR ---
ms betancur npo at this time, patient will be going to gastric emptying procedure to day.
[2022-07-13] MEDS: METOCLOPRAMIDE HCL 10 MG/2 ML VIAL IV SCH ×3 (08:51→18:33)
--- NOTE | 2022-07-13 10:00 | NUR ---
ms rn texted jesus for morphine dosage to go up to 4mg, because she was on this dose the last time she was here.
--- NOTE | 2022-07-13 11:50 | NUR ---
ms gypsy lee texted to go on 2mg iv at this time.
[2022-07-13] MEDS ORDERED: MORPHINE SULFATE INJ 2 MG/ML DISP.SYRIN IV PRN (14:30)
--- NOTE | 2022-07-13 14:45 | NUR ---
ms gypsy lee called to put down morphine to 1mg iv per gi md.
[2022-07-13] MEDS: METOPROLOL TARTRATE 25 MG TABLET PO SCH ×2 (15:36→21:26)
[2022-07-13] MEDS: clonazePAM 1 MG TABLET PO SCH ×2 (15:36→18:44)
[2022-07-13] MEDS: POTASSIUM CHLORIDE 10 MEQ TABLET.SA PO SCH (15:36)
[2022-07-13] MEDS: FAMOTIDINE (20 MG) 20 MG TABLET PO SCH ×2 (15:36→18:44)
[2022-07-13] MEDS: DULOXETINE HCL 20 MG CAPSULE.DR PO SCH (15:37)
[2022-07-13 16:17] VITALS: BP 114/66
[2022-07-13] MEDS: DRONABINOL (2.5 MG) 2.5 MG CAPSULE PO SCH (18:44)
--- NOTE | 2022-07-13 18:48 | NUR ---
ms rn on bed, no distress noted, started on marinol, will monitor patient.
--- NOTE | 2022-07-13 19:30 | NUR ---
MS RN OPENING NOTE PATIENT AWAKE IN BED. PATIENT IS A/O TIMES 4. NO PAIN NOTED. REMAINS STABLE ON ROOM AIR, BREATHING EVEN AND UNLABORED. IV ACCESS ON RIGHT UPPER ARM MID LINE INTACT AND PATENT RUNNING POTASSIUM CHLORIDE 20 MEQ AT 100 ML/HR.ALL SAFETY MEASURE IN PLACE, BED IN LOWEST AND LOCKED POSITION, SIDE RAILS UP X2, CALL LIGHT AND TABLE IN EASY REACH. WILL CONTINUE WITH PLAN OF CARE.
[2022-07-13 20:00] VITALS: BP 120/64
[2022-07-13] MEDS: ZOLPIDEM TARTRATE 10 MG TABLET PO SCH (21:26)
[2022-07-14] MEDS: MORPHINE SULFATE INJ 2 MG/ML DISP.SYRIN IV PRN ×5 (00:54→21:00)
[2022-07-14] MEDS: Potassium Chloride 20 MEQ in IV D5/0.45 NACL 1,000 ML IV SCH ×3 (01:25→21:22)
[2022-07-14 05:47] LABS: BASOPHILS % (AUTO) 0.4 % (0.0-2.0); EOSINOPHILS % (AUTO) 2.7 % (0.0-6.0); HEMATOCRIT 37 % (33-45); LYMPHOCYTES # (AUTO) 1.6 K/uL (0.8-4.8); LYMPHOCYTES % (AUTO) 28.4 % (20.0-44.0); MEAN CORPUSCULAR HGB CONC 32 g/dl (31.0-36.0); MEAN CORPUSCULAR VOLUME 85 fL (82-100); MONOCYTES # (AUTO) 0.5 K/uL (0.1-1.30); MONOCYTES % (AUTO) 9.7 % (2.0-12.0); NEUTROPHILS # (AUTO) 3.2 K/uL (1.8-8.9); NEUTROPHILS % (AUTO) 58.8 % (43.0-81.0); PLATELET COUNT (AUTO) 216 K/uL (150-450); RED BLOOD CELL COUNT(AUTO) 4.38 MIL/uL (4.0-5.2); WHITE BLOOD COUNT (AUTO) 5.5 K/uL (4.3-11.0)
[2022-07-14 06:13] LABS: ALBUMIN 3.2 g/dL (3.4-5.0); BILIRUBIN,DIRECT 0.1 mg/dL (0.0-0.2); BILIRUBIN,TOTAL 0.5 mg/dL (0.2-1.0); CALCIUM, SERUM 8.5 mg/dL (8.5-10.1); CREATININE 0.9 mg/dL (0.6-1.3); MAGNESIUM 2.1 mg/dL (1.8-2.4); PHOSPHORUS 3.8 mg/dL (2.5-4.9); POTASSIUM 3.5 mmol/L (3.5-5.1); TOTAL PROTEIN, SERUM 5.8 g/dL (6.4-8.2)
--- NOTE | 2022-07-14 07:30 | NUR ---
MS RN CLOSING NOTE PATIENT AWAKE IN BED. PATIENT IS A/O TIMES 4. NO PAIN NOTED. REMAINS STABLE ON ROOM AIR, BREATHING EVEN AND UNLABORED. IV ACCESS ON RIGHT UPPER ARM MID LINE INTACT AND PATENT RUNNING POTASSIUM CHLORIDE 20 MEQ AT 100 ML/HR. ALL DUE MEDS GIVEN ORDERED.ALL SAFETY MEASURE IN PLACE, BED IN LOWEST AND LOCKED POSITION, SIDE RAILS UP X2, CALL LIGHT AND TABLE IN EASY REACH. WILL ENDORSE FOR INCOMING SHIFT FOR ROSE.
--- NOTE | 2022-07-14 07:35 | NUR ---
ms rn received on beb,awake,alert,oriented x4,not in any form of distress,respirations,even and unlabored,no sob noted, denies pain at this time, denies nausea at this time,all needs attended.
[2022-07-14 08:26] VITALS: BP 97/70
[2022-07-14] MEDS: METOCLOPRAMIDE HCL 10 MG/2 ML VIAL IV SCH ×3 (08:36→16:54)
--- NOTE | 2022-07-14 09:00 | NUR ---
ms betancur breakfast served,due meds given,tolerated well. will monitor patient.
[2022-07-14] MEDS: DULOXETINE HCL 20 MG CAPSULE.DR PO SCH (09:23)
[2022-07-14] MEDS: clonazePAM 1 MG TABLET PO SCH ×2 (09:24→16:54)
[2022-07-14] MEDS: FAMOTIDINE (20 MG) 20 MG TABLET PO SCH ×2 (09:24→16:54)
[2022-07-14] MEDS: DRONABINOL (2.5 MG) 2.5 MG CAPSULE PO SCH (09:24)
[2022-07-14] MEDS: PANTOPRAZOLE 40 MG TABLET.DR PO SCH (09:24)
[2022-07-14] MEDS: METOPROLOL TARTRATE 25 MG TABLET PO SCH ×2 (09:25→21:57)
[2022-07-14] MEDS: POTASSIUM CHLORIDE 10 MEQ TABLET.SA PO SCH (09:31)
--- NOTE | 2022-07-14 12:00 | NUR ---
ms rn patient on bed,no distress noted,was seen by Chelo ayon, awaiting for orders.
[2022-07-14 16:08] VITALS: BP 106/71
--- NOTE | 2022-07-14 16:30 | NUR ---
ms rn medicated for abd paion 01/08, morphine 1 mg given per order.
--- NOTE | 2022-07-14 18:07 | NUR ---
ms rn on bed, patient updated w/ plan of care, diet advanced to solids, will monitor patient.
--- NOTE | 2022-07-14 19:52 | NUR ---
RN OPENING NOTE PATIENT AWAKE IN BED. A/OX4. NO S/S OF DISTRESS, BREATHING WITHOUT DIFFICULTY ON ROOM AIR. ELGIN MIDLINE #18 INTACT AND PATENT W/ KCl 100ML/HR. SAFETY MEASURES IN PLACE: BED LOCKED AND AT LOWEST POSITION, RAILS UP X2, CALL SAWYER WITHIN REACH. WILL CONTINUE TO MONITOR PATIENT.
[2022-07-14 20:00] VITALS: BP 110/74
[2022-07-14] MEDS: ZOLPIDEM TARTRATE 10 MG TABLET PO SCH (21:57)
[2022-07-15] MEDS: MORPHINE SULFATE INJ 2 MG/ML DISP.SYRIN IV PRN ×3 (03:25→12:37)
[2022-07-15] MEDS: Potassium Chloride 20 MEQ in IV D5/0.45 NACL 1,000 ML IV SCH (05:54)
[2022-07-15 06:17] LABS: ALBUMIN 3.1 g/dL (3.4-5.0); BILIRUBIN,DIRECT 0.1 mg/dL (0.0-0.2); BILIRUBIN,TOTAL 0.3 mg/dL (0.2-1.0); TOTAL PROTEIN, SERUM 5.8 g/dL (6.4-8.2)
[2022-07-15 06:24] LABS: BASOPHILS % (AUTO) 0.3 % (0.0-2.0); EOSINOPHILS % (AUTO) 3.6 % (0.0-6.0); HEMATOCRIT 39 % (33-45); HEMOGLOBIN 12.3 g/dL (11.5-14.8); LYMPHOCYTES # (AUTO) 1.5 K/uL (0.8-4.8); LYMPHOCYTES % (AUTO) 26.7 % (20.0-44.0); MEAN CORPUSCULAR HGB CONC 32 g/dl (31.0-36.0); MEAN CORPUSCULAR VOLUME 85 fL (82-100); MONOCYTES # (AUTO) 0.7 K/uL (0.1-1.30); MONOCYTES % (AUTO) 12.1 % (2.0-12.0); NEUTROPHILS # (AUTO) 3.3 K/uL (1.8-8.9); NEUTROPHILS % (AUTO) 57.3 % (43.0-81.0); PLATELET COUNT (AUTO) 213 K/uL (150-450); RED BLOOD CELL COUNT(AUTO) 4.55 MIL/uL (4.0-5.2); WHITE BLOOD COUNT (AUTO) 5.7 K/uL (4.3-11.0)
[2022-07-15 06:28] LABS: CALCIUM, SERUM 8.2 mg/dL (8.5-10.1); CREATININE 0.9 mg/dL (0.6-1.3); MAGNESIUM 2.1 mg/dL (1.8-2.4); PHOSPHORUS 3.9 mg/dL (2.5-4.9); POTASSIUM 3.6 mmol/L (3.5-5.1)
--- NOTE | 2022-07-15 06:59 | NUR ---
RN CLOSING NOTE PATIENT AWAKE IN BED. A/OX4. NO S/S OF DISTRESS, BREATHING WITHOUT DIFFICULTY ON ROOM AIR. ELGIN MIDLINE #18 INTACT AND PATENT W/ KCl 100ML/HR. SAFETY MEASURES IN PLACE: BED LOCKED AND AT LOWEST POSITION, RAILS UP X2, CALL SAWYER WITHIN REACH. WILL ENDORSE TO NEXT SHIFT FOR ROSE.
--- NOTE | 2022-07-15 07:20 | NUR ---
ms rn received on bed, awake,alert,oriented x4,not in any form of distress, respirations even and unlabored,no sob noted, patient denies nausea and vomiting, denies pain at this time, will monitor patient.
[2022-07-15 08:00] VITALS: BP 111/67
[2022-07-15] MEDS: METOCLOPRAMIDE HCL 10 MG/2 ML VIAL IV SCH ×2 (08:30→12:37)
--- NOTE | 2022-07-15 08:30 | NUR ---
ms betancur breakfast served,due meds given,tolerated well.
[2022-07-15] MEDS: PANTOPRAZOLE 40 MG TABLET.DR PO SCH (08:42)
--- NOTE | 2022-07-15 09:05 | NUR ---
ms rn was seen by Chelo Mann , waiting for orders.
[2022-07-15] MEDS: clonazePAM 1 MG TABLET PO SCH (09:22)
[2022-07-15] MEDS: FAMOTIDINE (20 MG) 20 MG TABLET PO SCH (09:22)
[2022-07-15] MEDS: POTASSIUM CHLORIDE 10 MEQ TABLET.SA PO SCH (09:23)
[2022-07-15 09:24] VITALS: BP 111/67
[2022-07-15] MEDS: DULOXETINE HCL 20 MG CAPSULE.DR PO SCH (09:24)
[2022-07-15] MEDS: METOPROLOL TARTRATE 25 MG TABLET PO SCH (09:24)
--- NOTE | 2022-07-15 13:05 | NUR ---
ms harness cleaner instructions given and understood, patient went home accompanied by mom,all needs attended.
== END 2022-07-15 13:34 | disposition home or self-care (01) | DRG 866 ==
LOC: ER 09:11 → MED 14:50
PROVIDERS: ADMIT Registered Nurse; ATTEND Registered Nurse
PROC: 05HB33Z Insertion of Infusion Device into Right Basilic Vein, Percutaneous Approach (ICD-10-PCS; principal; 2022-07-12)
DX: B34.9 Viral infection, unspecified (principal); E87.1 Hypo-osmolality and hyponatremia; K58.0 Irritable bowel syndrome with diarrhea; E86.0 Dehydration; Z20.822 Contact with and (suspected) exposure to COVID-19; Z85.528 Personal history of other malignant neoplasm of kidney; Z90.5 Acquired absence of kidney; K20.90 Esophagitis, unspecified without bleeding; K29.70 Gastritis, unspecified, without bleeding; Z98.890 Other specified postprocedural states; Z96.0 Presence of urogenital implants; Z88.8 Allergy status to other drugs, medicaments and biological substances; Z88.1 Allergy status to other antibiotic agents; Z91.040 Latex allergy status; Z79.899 Other long term (current) drug therapy; Z87.442 Personal history of urinary calculi; E87.5 Hyperkalemia; K76.0 Fatty (change of) liver, not elsewhere classified; E66.9 Obesity, unspecified; Z68.33 Body mass index [BMI] 33.0-33.9, adult; N20.0 Calculus of kidney
CPT/HCPCS: 36415; 74250-TC; 76700-TC; 80048-TC; 80076-TC; 81001; 82247-TC; 82248-TC; 83690-TC; 83735-TC; 84100-TC; 84443-TC; 84703-TC; 85025-TC; 87081-TC; 87177; 87209; A9541; C9803; G0378; J0500; J1200; J1630; J2270; J2405; J2765; J3480; J3490; J7030; J7050; Q0167; Q9963